=== PATIENT | female | born 1980 | race Caucasian/White ===

== ENCOUNTER 2020-07-10 21:25 | Emergency (ER) | payer OTHER ==
[~2020-07-10] VITALS: Ht 167.6 cm; Wt 93.6 kg
[2020-07-10] MEDS ORDERED: normal saline 1000ML IV soln IVB ONE (21:45)
[2020-07-10] MEDS ORDERED: ondansetron/PF 4mg/2ml inj IV ONE (21:45)
[2020-07-10] MEDS ORDERED: morphine 4 MG/ML inj SYRINge IV PRN (21:45)
[2020-07-10 22:13] LABS: BASOPHILS # (AUTO) 0.1 X10'3 (0-0.2); BASOPHILS % (AUTO) 0.5 % (0-1); EOSINOPHILS # (AUTO) 0.1 X10'3 (0-0.9); HEMOGLOBIN 12.6 g/dl (12.0-16.0); LYMPHOCYTES # (AUTO) 2.7 X10'3 (1.1-4.8); LYMPHOCYTES % (AUTO) 21.1 % (21-51); MEAN CORPUSCULAR HEMOGLOBIN 23.3 PG (27.0-31.0); MEAN CORPUSCULAR HGB CONC 32.3 g/dL (33.0-36.5); MEAN PLATELET VOLUME 8.6 FL (7.4-10.4); MONOCYTES # (AUTO) 1.2 X10'3 (0-0.9); MONOCYTES % (AUTO) 9.1 % (2-12); NEUTROPHILS # (AUTO) 8.8 X10'3 (1.8-7.7); NEUTROPHILS % (AUTO) 68.3 % (42-75); PLATELET COUNT 348 X10'3 (140-440); RED BLOOD COUNT 5.41 X10'6 (4.20-5.60); RED CELL DISTRIBUTION WIDTH 14.5 % (11.5-14.5); WHITE BLOOD COUNT 12.9 X10'3 (4.5-11.0)
[2020-07-10 22:16] VITALS: BP 138/100
[2020-07-10 22:19] LABS: ALANINE AMINOTRANSFERASE 22 U/L (12-78); ALBUMIN 3.5 G/DL (3.4-5.0); ALBUMIN/GLOBULIN RATIO 0.9 (1.1-1.5); ALKALINE PHOSPHATASE 66 IU/L (46-116); ANION GAP 13 (8-16); ASPARTATE AMINO TRANSFERASE 17 U/L (10-37); BILIRUBIN,TOTAL 0.3 MG/DL (0.1-1.0); BLOOD UREA NITROGEN 10 MG/DL (7-18); BUN/CREATININE RATIO 11.6 (6.6-38.0); CALCIUM 8.7 MG/DL (8.5-10.1); CHLORIDE 104 MMOL/L (99-107); CREATININE 0.86 MG/DL (0.40-0.90); GLUCOSE 105 MG/DL (70-104); LIPASE 110 U/L (73-393); SODIUM 138 MMOL/L (135-145); TOTAL CARBON DIOXIDE 21.4 MMOL/L (24-32); TOTAL PROTEIN 7.2 G/DL (6.4-8.2); eGFR 73 ML/MIN
--- NOTE | 2020-07-10 22:31 | NUR ---
labs drawn, piv in place, xray comopeted, 1st of 2 liters infusing . stable vs.
[2020-07-10 22:35] LABS: CLARITY,URINE CLEAR (Clear); COLOR,URINE YELLOW (Yellow); GLUCOSE, URINE NEGATIVE (Neg); KETONES,URINE NEGATIVE (Neg); LEUKOCYTE ESTERASE ,URINE NEGATIVE (Neg); NITRITES, URINE NEGATIVE (Neg); OCCULT BLOOD,URINE NEGATIVE (Neg); PH,URINE >=9.0 (4.8-8.0); PROTEIN,URINE 100 mg/dl (Neg); UROBILINOGEN,URINE 0.2 E.U/dL (0.2-1.0)
[2020-07-10 22:37] LABS: URINE HCG NEGATIVE (NEG)
[2020-07-10] MEDS ORDERED: LORazepam 2 mg/ml vial IV ONE (22:40)
[2020-07-10] MEDS ORDERED: LIDOcaine Viscous 15ml cup MM ONE (22:40)
[2020-07-10] MEDS ORDERED: sucralfate 1 gm tablet PO ONE (22:40)
[2020-07-10] MEDS ORDERED: mag hydrox/Alum hydrox/simeth 30ml oral suspension PO ONE (22:40)
[2020-07-10] MEDS ORDERED: famotidine/PF 10 mg/ml inj IV ONE (22:40)
[2020-07-10 22:52] LABS: UA COLLECTION TYPE CLN CATCH MIDSTREAM
[2020-07-10 22:54] LABS: BACTERIA,URINE 2+ /HPF (Neg); MUCUS STRANDS FEW /LPF (Neg); RBC,URINE NONE SEEN /HPF (0-2); SQUAMOUS EPITHELIAL CELL,UR MODERATE /LPF (FEW)
[2020-07-10] MEDS ORDERED: PANT-47 PO (23:06)
[2020-07-10] MEDS ORDERED: ONDA4TAB6 PO (23:06)
== END 2020-07-10 23:11 | disposition home or self-care (01) ==
LOC: ER 21:26
DX: K44.9 Diaphragmatic hernia without obstruction or gangrene (principal); R10.12 Left upper quadrant pain; R07.81 Pleurodynia; Z90.49 Acquired absence of other specified parts of digestive tract; Z91.040 Latex allergy status; Z79.899 Other long term (current) drug therapy
CPT/HCPCS: 36415; 71045; 74176; 80053; 81001; 81025; 83690; 85025; 87088; 93005; 96361; 96374; 96375; 99285; J2060; J2270; J2405; J3490; J7030

== ENCOUNTER 2022-02-13 06:51 | Day surgery (SDC) | payer OTHER ==
[~2022-02-13] VITALS: Ht 167.6 cm; Wt 90.9 kg
[~2022-02-13 06:51] MED LIST: ONDA4TAB6 PO; PANT-47 PO
[2022-02-13 07:43] VITALS: BP 144/93
[2022-02-13] MEDS ORDERED: MAGN400C PO (07:55)
[2022-02-13] MEDS ORDERED: ESOM40CA43 PO (07:55)
[2022-02-13] MEDS ORDERED: CYCL-1 PO (07:55)
[2022-02-13] MEDS ORDERED: SUMA50TA PO (07:55)
[2022-02-13] MEDS ORDERED: MIDAZolam 1 MG/ML 5ML VIAL ONE (08:00)
[2022-02-13] MEDS ORDERED: LIDOcaine Viscous 15ml cup ONE (08:00)
[2022-02-13] MEDS ORDERED: fentaNYL/PF 50MCG/1 ML 2ML syringe ONE (08:00)
[2022-02-13] MEDS ORDERED: meperidine/PF 100mg/ml syringe ONE (08:05)
[2022-02-13 08:39] VITALS: BP 110/73
[2022-02-13 08:49] VITALS: BP 107/75
[2022-02-13 08:59] VITALS: BP 100/63
[2022-02-13 09:09] VITALS: BP 108/70
== END 2022-02-13 09:30 | disposition home or self-care (01) ==
LOC: GI LAB 06:51
PROVIDERS: ATTEND Surgery
DX: R13.10 Dysphagia, unspecified (principal); K21.00 Gastro-esophageal reflux disease with esophagitis, without bleeding; K22.70 Barrett's esophagus without dysplasia; K22.10 Ulcer of esophagus without bleeding; K44.9 Diaphragmatic hernia without obstruction or gangrene; K29.60 Other gastritis without bleeding; G43.909 Migraine, unspecified, not intractable, without status migrainosus; Z79.899 Other long term (current) drug therapy
CPT/HCPCS: 43239; 99152; J2175; J2250; J3010; J7040; Z7512; 99153; A4620

== ENCOUNTER 2022-05-22 05:30 | Day surgery (SDC) | payer OTHER ==
[2022-05-19 15:10] LABS: BASOPHILS # (AUTO) 0.1 X10'3 (0-0.2); BASOPHILS % (AUTO) 0.8 % (0-1); EOSINOPHILS # (AUTO) 0.1 X10'3 (0-0.9); EOSINOPHILS % (AUTO) 1.1 % (0-6); LYMPHOCYTES # (AUTO) 2.2 X10'3 (1.1-4.8); LYMPHOCYTES % (AUTO) 24.4 % (21-51); MEAN CORPUSCULAR HEMOGLOBIN 17.7 PG (27.0-31.0); MEAN CORPUSCULAR HGB CONC 30.2 g/dL (33.0-36.5); MEAN CORPUSCULAR VOLUME 58.7 FL (78-98); MEAN PLATELET VOLUME 8.2 FL (7.4-10.4); MONOCYTES # (AUTO) 0.9 X10'3 (0-0.9); MONOCYTES % (AUTO) 10.2 % (2-12); NEUTROPHILS # (AUTO) 5.7 X10'3 (1.8-7.7); NEUTROPHILS % (AUTO) 63.5 % (42-75); PRE OP HEMATOCRIT 32.2 % (35.0-45.0); PRE OP PLATELET COUNT 400 X10'3 (140-440); RED BLOOD COUNT 5.49 X10'6 (4.20-5.60); RED CELL DISTRIBUTION WIDTH 17.4 % (11.5-14.5)
[2022-05-19 15:17] LABS: PRE OP HEMOGLOBIN 9.7 g/dL (12.0-16.0)
[2022-05-19 15:24] LABS: ALBUMIN 3.6 G/DL (3.4-5.0); ALKALINE PHOSPHATASE 71 IU/L (46-116); BLOOD UREA NITROGEN 6 MG/DL (7-18); BUN/CREATININE RATIO 7.7 (6.6-38.0); CALCIUM 9.2 MG/DL (8.5-10.1); CHLORIDE 107 MMOL/L (99-107); CREATININE 0.78 MG/DL (0.40-0.90); PRE OP ALT 36 U/L (30-65); PRE OP ANION GAP 10 (8-16); PRE OP AST 20 U/L (10-37); PRE OP BILIRUB, TOTAL 0.3 MG/DL (0.0-1.0); PRE OP GLUCOSE 117 MG/DL (70-104); PRE OP POTASSIUM 3.9 MMOL/L (3.4-5.1); PRE OP SODIUM 139 MMOL/L (135-145); TOTAL PROTEIN 7.2 G/DL (6.4-8.2); eGFR 81 ML/MIN
[2022-05-19 15:25] LABS: HCG SERUM QL NEGATIVE
[2022-05-19 15:41] LABS: ANISOCYTOSIS 1+; ELLIPTOCYTES 1+; MICROCYTOSIS 3+; PLATELET ESTIMATE NORMAL
[2022-05-22] VITALS (22 sets, daily range): BP systolic 109–140; BP diastolic 69–89
[~2022-05-22] VITALS: Ht 167.6 cm; Wt 90.4 kg
[~2022-05-22 05:30] MED LIST changes: +CYCL-1 PO; +IBUP-24 PO; +MAGN500C4 PO; +OMEP20CA15 PO; -ONDA4TAB6 PO; -PANT-47 PO; +SUMA25TA9 PO; +ceFAZolin inj. 2,000 MG in dextrose 5%-water 100 ML IV ONE; +famotidine 20mg tablet PO ONE; +ringers solution, lacted 1,000 ML IV SCH
[2022-05-22] MEDS ORDERED: BUPIVAcaine 0.5% inj/PF 30 ML ONE (06:39)
[2022-05-22] MEDS ORDERED: LIDOcaine 1% 30ml preserv. free vial ONE (06:39)
[2022-05-22] MEDS ORDERED: BUPIVAcaine 0.5% inj/PF 30 ml vial IJ ONE (07:04)
[2022-05-22] MEDS ORDERED: labetalol 20mg/4ml (5mg/ml) syringe IV PRN (07:25)
[2022-05-22] MEDS ORDERED: morphine 2 MG/ML inj. syringe IV PRN (07:25)
[2022-05-22] MEDS ORDERED: meperidine/PF 25mg/ml syringe IV PRN ×3 (07:25)
[2022-05-22] MEDS ORDERED: acetaminophen 1,000mg/100ml IV 100 ML IV PRN (07:25)
[2022-05-22] MEDS ORDERED: ondansetron/PF 4mg/2ml inj IV PRN ×2 (07:25→10:05)
[2022-05-22] MEDS ORDERED: proCHLORperazine 10 MG/2 ml inj IV PRN (07:25)
[2022-05-22] MEDS ORDERED: ringers solution, lacted 1,000 ML IV SCH (07:25)
[2022-05-22] MEDS ORDERED: morphine 4 MG/ML inj SYRINge IV PRN (07:25)
[2022-05-22] MEDS ORDERED: hydrALAZINE 20mg/ml inj. IV PRN (07:25)
[2022-05-22] MEDS ORDERED: sevoflurane 250ml liquid IH ONE (07:36)
[2022-05-22] MEDS ORDERED: midazolam 1 mg/ML 2ml injection ONE (07:45)
[2022-05-22] MEDS ORDERED: ondansetron/PF 4mg/2ml inj ONE (08:36)
[2022-05-22] MEDS ORDERED: propofol inj 20 ML IV ONE (08:36)
[2022-05-22] MEDS ORDERED: LIDOcaine 2% (20mg/ml) 5ml vial ONE (08:36)
[2022-05-22] MEDS ORDERED: rocuronium 10mg/ml inj IV ONE (08:36)
[2022-05-22] MEDS ORDERED: fentaNYL /PF 50mcg/ml 5ml ampule ONE (08:36)
[2022-05-22] MEDS ORDERED: dexamethasone sod phosphate 4mg/ml inj. ONE (08:36)
[2022-05-22] MEDS ORDERED: neostigmine methylsulfate 1 MG/ML 10ml vial ONE (09:52)
[2022-05-22] MEDS ORDERED: glycopyrrolate 0.2mg/ml inj ONE (09:52)
[2022-05-22] MEDS ORDERED: sugammadex 200mg/2ml injection IV ONE (09:58)
[2022-05-22] MEDS ORDERED: naloxone 0.4 mg/ml inj IV PRN (10:05)
[2022-05-22] MEDS ORDERED: HYDROcodone/acetaminophen 10/325mg tab PO PRN (10:05)
[2022-05-22] MEDS ORDERED: HYDROcodone/acetaminophen 5mg/325mg tablet PO PRN (10:05)
--- NOTE | 2022-05-22 10:08 | NUR ---
Received from OR via [facility], accompanied by Anesthesiologist DR. BRUNER and report given by Anesthesiolgist. 3 LAP SITES TO ANTERIOR ABDOMEN HORIZONTALLY, CLEAN, NO DRAINAGE, INTACT, NO DRESSING. 20G LEFT HAND WITH LR RUNNING AT 100ML/HR. 10L MASK, SINUS TACHYCARDIA, VSS. WILL CONTINUE TO MONITOR.
--- NOTE | 2022-05-22 11:45 | NUR ---
OK'D BY DR. HUITRON TO ORDER PATIENT MIGRAINE MEDICINE FROM HOME ONCE. PATIENT TO GET A FULL LIQUID DIET TRAY AND REASSESS.
[2022-05-22] MEDS ORDERED: SUMAtriptan 25 MG tablet PO ONE (11:50)
--- NOTE | 2022-05-22 14:08 | NUR ---
PATIENT DELAYED DISCHARGE DUE TO MIGRAINE THAT IS A REGULAR OCCURRENCE FOR HER. IMMETREX GIVEN. SHE STATES THAT MIGRAINES USUALLY GO AWAY WITH SLEEP. PATIENT AND PATIENT'S MOM, ADE, GIVEN DISCHARGE INSTRUCTIONS. PATIENT DENIES SURGICAL PAIN, DENIES NAUSEA. EATING FULL LIQUID DIET AND AMBULATING.
--- NOTE | 2022-05-22 14:08 | NUR ---
DISCHARGED HOME WITH ALL BELONGINGS.
== END 2022-05-22 14:08 | disposition home or self-care (01) ==
LOC: PAS 05:30 → EDSTATUS 07:30 → PAS 14:08
PROVIDERS: ATTEND Surgery
DX: K44.9 Diaphragmatic hernia without obstruction or gangrene (principal); G43.909 Migraine, unspecified, not intractable, without status migrainosus; F41.9 Anxiety disorder, unspecified; F32.A Depression, unspecified; E66.9 Obesity, unspecified; Z68.32 Body mass index [BMI] 32.0-32.9, adult; Z90.49 Acquired absence of other specified parts of digestive tract; Z91.040 Latex allergy status; Z79.899 Other long term (current) drug therapy
CPT/HCPCS: 36415; 43282; 71045; 80053; 82948; 84703; 85025; C1758; C1781; J0131; J0690; J1100; J2175; J2250; J2405; J2704; J2710; J3010; J3490; J7030; J7060; J7120; S0020; S2900; Z7506; Z7508; Z7512; 85008; A4618